=== PATIENT | female | born 1945 | race Caucasian/White ===

== ENCOUNTER 2018-02-16 21:34 | Inpatient (IN) | payer MEDICARE, BC ==
[2018-02-16] MEDS ORDERED: NORMAL SALINE 1000 ML 1,000 ML IV ONE (21:58)
[2018-02-16] MEDS ORDERED: ONDANSETRON HCL INJ/PF 4 MG/2 ML SDV IV ONE (21:58)
[2018-02-16 22:43] LABS: ABSOLUTE MONOCYTES (AUTO) 1.2 10^3/uL (0.1-1.4); ABSOLUTE NEUT (AUTO) 14.9 10^3/uL (1.7-8.2); BASOPHILS % (AUTO) 0.3 % (0-2); HEMATOCRIT 39.5 % (36.0-47.0); MEAN CORPUSCULAR HEMOGLOBIN 29.4 pg (27.0-33.4); MEAN CORPUSCULAR HGB CONC 32.9 g/dL (32.0-36.0); MEAN CORPUSCULAR VOLUME 89 fl (80-97); MONOCYTES % (AUTO) 6.7 % (3-13); PLATELET COUNT 246 10^3/uL (150-450); RED BLOOD COUNT 4.44 10^6/uL (3.72-5.28); RED CELL DISTRIBUTION WIDTH 13.1 % (11.5-14.0); TOTAL CELLS COUNTED % (AUTO) 100 %; WHITE BLOOD COUNT 17.2 10^3/uL (4.0-10.5)
--- NOTE | 2018-02-16 22:48 | ER Document Report ---
ED Syncope and Near Syncope - General Chief Complaint: Passed Out Prior to Arrival Stated Complaint: POSSIBLE SYNCOPAL EPISODE Time Seen by Provider: 02/16/18 21:48 Mode of Arrival: Medic Information source: Patient, Relative - Notes: Patient is a 72-year-old female who presents with complaints of diarrhea and syncopal episode. Patient has not been seen at this facility before. Patient' s reports that they were visiting [place] for dinner when the patient felt like she had to have a bowel movement. Patient had a large amount of diarrhea in the bathroom and then had a syncopal episode. On EMS arrival patient was hypotensive with a initial blood pressure of 73/58. Patient is alert and oriented now and reports that her only complaint is diarrhea and lower abdominal cramping. Patient's reports that she had a history of a similar incident 8 months ago in which she had a syncopal episode with diarrhea and was subsequently admitted to [facility] and diagnosed with colitis. Patient's past medical history includes hyperlipidemia , hypertension, diverticulosis and recurrent UTIs. Past surgical history positive for total hysterectomy. Patient's reports they have moved in the last couple of months, patient has been under a lot of stress and has not been eating nutritious meals. Patient has not had any fevers, chest pain or any other symptoms prior to this she was feeling fine before tonight. - Related Data Allergies/Adverse Reactions: Sulfa (Sulfonamide Antibiotics) Allergy (Verified 02/17/18 05:02) Past Medical History - General Information source: Patient, Relative - Social History Smoking Status: Never Smoker Cigarette use (# per day): No Chew tobacco use (# tins/day): No Smoking Education Provided: No Frequency of alcohol use: None Drug Abuse: None Family History: Reviewed & Not Pertinent - Past Medical History Cardiac Medical History: Reports: Hx Hypercholesterolemia, Hx Hypertension Renal/ Medical History: Reports: Other - Recurrent urinary tract infections GI Medical History: Reports: Hx Irritable Bowel, Other - Colitis Past Surgical History: Reports: Hx Hysterectomy Review of Systems - Review of Systems Constitutional: See HPI EENT: No symptoms reported Cardiovascular: No symptoms reported Respiratory: No symptoms reported Gastrointestinal: See HPI Genitourinary: No symptoms reported Female Genitourinary: No symptoms reported Musculoskeletal: No symptoms reported Skin: No symptoms reported Hematologic/Lymphatic: No symptoms reported Neurological/Psychological: No symptoms reported Physical Exam - Vital signs Vitals: Resp 14 02/16/18 21:58 - Notes Notes: PHYSICAL EXAMINATION: GENERAL: Well-appearing, well-nourished and in no acute distress. HEAD: Atraumatic, normocephalic. EYES: Pupils equal round and reactive to light, extraocular movements intact, conjunctiva are normal. ENT: Nares patent, oropharynx clear without exudates. Moist mucous membranes. NECK: Normal range of motion, supple without lymphadenopathy LUNGS: Breath sounds clear to auscultation bilaterally and equal. No wheezes rales or rhonchi. HEART: Regular rate and rhythm without murmurs ABDOMEN: Soft, nontender, nondistended abdomen. No guarding, no rebound. No masses appreciated. Female : deferred Musculoskeletal: Normal range of motion, no pitting or edema. No cyanosis. NEUROLOGICAL: Cranial nerves grossly intact. Normal speech, normal gait. Normal sensory, motor exams PSYCH: Normal mood, normal affect. SKIN: Warm, Dry, normal turgor, no rashes or lesions noted. Course - Re-evaluation Re-evalutation: Weak appearing 72-year-old female arrives via EMS with complaints of hypotension , syncope and diarrhea. Patient reports sudden onset of diarrhea while she was out to dinner and had syncopal episode while on the toilet. Patient and state that she was feeling fine all day. Patient's only complaint currently is low abdominal cramping and diarrhea. Given the patient's history of colitis 8 months ago with subsequent admission, will work patient up for possible infectious colitis. She will receive IV fluids for hypotension. Patient has remained normotensive since then department. EMS initially reported systolic blood pressure in the 70s however that was not documented in our department as patient had RDC received 1 L normal saline before arrival. CBC reveals a white count of 17. CT abdomen pelvis with IV contrast shows diffuse colitis to left colon, chronic diverticulosis and hiatal hernia. Stool was sent to laboratory for C. difficile testing and is negative. Urinalysis shows no signs of infection. EKG is sinus rhythm with no ST elevation or depressions. IV fluid resuscitation continued for a total of 3 L. Patient started on IV Cipro and Flagyl for probable infectious colitis. Patient has remained normotensive and all other vitals have been stable during her emergency department stay. Spoke with hospitalist, Dr. Suresh who agrees to admit patient to telemetry floor. - Vital Signs Vital signs: Temp Pulse Resp BP Pulse Ox 98.6 F 73 18 150/60 H 99 02/17/18 06:14 02/17/18 06:14 02/17/18 06:14 02/17/18 06:14 02/17/18 06:14 - Laboratory Result Diagrams: 02/17/18 03:14 02/17/18 03:14 Laboratory results interpreted by me: 02/16/18 02/16/18 02/17/18 22:25 22:25 03:14 WBC 17.2 H 13.6 H Seg Neutrophils % 87.0 H 91.0 H Lymphocytes % 6.0 L 5.2 L Absolute Neutrophils 14.9 H 12.4 H Sodium Chloride 110 H Carbon Dioxide BUN 26 H Est GFR ( Amer) 52 L Est GFR (Non-Af Amer) 43 L Glucose 169 H Direct Bilirubin 0.5 H Total Protein 6.2 L Albumin 02/17/18 03:14 WBC Seg Neutrophils % Lymphocytes % Absolute Neutrophils Sodium 146.3 H Chloride 114 H Carbon Dioxide 19 L BUN 28 H Est GFR ( Amer) Est GFR (Non-Af Amer) 55 L Glucose 147 H Direct Bilirubin Total Protein 5.5 L Albumin 3.1 L Discharge - Discharge Clinical Impression: Colitis Hypotension Qualifiers: Hypotension type: unspecified hypotension type Qualified Code(s): I95.9 - Hypotension, unspecified Diarrhea Qualifiers: Diarrhea type: unspecified type Qualified Code(s): R19.7 - Diarrhea, unspecified Condition: Stable Disposition: ADMITTED INPATIENT Admitting Provider: Hospitalist Unit Admitted: Telemetry
[2018-02-16 23:01] LABS: ALANINE AMINOTRANSFERASE 22 U/L (9-52); ALBUMIN 3.6 g/dL (3.5-5.0); ALKALINE PHOSPHATASE 90 U/L (38-126); ANION GAP 12 (5-19); ASPARTATE AMINO TRANSFERASE 19 U/L (14-36); BILIRUBIN,DIRECT 0.5 mg/dL (0.0-0.4); BILIRUBIN,TOTAL 0.7 mg/dL (0.2-1.3); BLOOD UREA NITROGEN 26 mg/dL (7-20); CALCIUM 9.5 mg/dL (8.4-10.2); CARBON DIOXIDE 22 mmol/L (22-30); CHLORIDE 110 mmol/L (98-107); GLUCOSE 169 mg/dL (75-110); LIPASE 55.5 U/L (23-300); POTASSIUM 3.6 mmol/L (3.6-5.0); SODIUM 144.1 mmol/L (137-145); TOTAL PROTEIN 6.2 g/dL (6.3-8.2)
[2018-02-17] MEDS ORDERED: ONDANSETRON HCL INJ/PF 4 MG/2 ML SDV IV ONE (00:49)
[2018-02-17] MEDS ORDERED: NORMAL SALINE 1000 ML 1,000 ML IV ONE (01:27)
[2018-02-17] MEDS ORDERED: CIPROFLOXACIN 400 MG/D5W RTU 400 MG/200 ML RTUPB IV ONE (02:44)
[2018-02-17] MEDS ORDERED: METRONIDAZOLE 500 MG/NS RTU 100 ML IV ONE (02:46)
[2018-02-17] MEDS ORDERED: ONDANSETRON HCL INJ/PF 4 MG/2 ML SDV IV PRN (03:11)
[2018-02-17] MEDS ORDERED: IPRATROPIUM/ALBUTEROL 0.5-2.5 MG/3 ML AMPUL NEB PRN (03:11)
[2018-02-17 03:25] LABS: ABSOLUTE LYMPHOCYTES (AUTO) 0.7 10^3/uL (0.5-4.7); ABSOLUTE MONOCYTES (AUTO) 0.5 10^3/uL (0.1-1.4); ABSOLUTE NEUT (AUTO) 12.4 10^3/uL (1.7-8.2); BASOPHILS % (AUTO) 0.2 % (0-2); HEMATOCRIT 36.9 % (36.0-47.0); HEMOGLOBIN 12.3 g/dL (12.0-15.5); LYMPHOCYTES % (AUTO) 5.2 % (13-45); MEAN CORPUSCULAR HEMOGLOBIN 29.6 pg (27.0-33.4); MEAN CORPUSCULAR HGB CONC 33.3 g/dL (32.0-36.0); MEAN CORPUSCULAR VOLUME 89 fl (80-97); MONOCYTES % (AUTO) 3.6 % (3-13); PLATELET COUNT 223 10^3/uL (150-450); RED BLOOD COUNT 4.17 10^6/uL (3.72-5.28); RED CELL DISTRIBUTION WIDTH 13.1 % (11.5-14.0); TOTAL CELLS COUNTED % (AUTO) 100 %; WHITE BLOOD COUNT 13.6 10^3/uL (4.0-10.5)
--- NOTE | 2018-02-17 03:48 | RADIOLOGY REPORT (SQ) ---
EXAM DESCRIPTION: CT ABDOMEN PELVIS WITH IV CONTRAST CLINICAL HISTORY: 72 years Female, diarrhea, low abd pain, syncope Comparison: None. Technique: IV contrast. Coronal and sagittal reformat. This exam was performed according to our departmental dose-optimization program, which includes automated exposure control, adjustment of the mA and/or kV according to patient size and/or use of iterative reconstruction technique.[facility]: Dose Right [facility]: CareDose [facility]: Dose Right [facility]: Teradose 4D [facility]: [employer] LIMITATIONS: None. Findings: Moderate diffuse bowel wall thickening of the left colon and proximal sigmoid. Moderate hiatal hernia, colonic diverticulosis, moderate retained fluid in the colon consistent with nonspecific malabsorption. Small L4-5 vacuum disc desiccation. Inferior thorax, liver, gallbladder, pancreas, spleen, adrenals, renal system, pelvic organs, lymphatics, vasculature, and musculoskeleton appear otherwise unremarkable. IMPRESSION: 1. Moderate diffuse colitis pattern of the left colon. Differential diagnosis includes infectious, inflammatory, and neoplastic processes. 2. Moderate hiatal hernia. Colonic diverticulosis.
[2018-02-17 03:55] LABS: ALANINE AMINOTRANSFERASE 27 U/L (9-52); ALBUMIN 3.1 g/dL (3.5-5.0); ALKALINE PHOSPHATASE 84 U/L (38-126); ANION GAP 13 (5-19); ASPARTATE AMINO TRANSFERASE 20 U/L (14-36); BILIRUBIN,DIRECT 0.4 mg/dL (0.0-0.4); BILIRUBIN,TOTAL 0.4 mg/dL (0.2-1.3); BLOOD UREA NITROGEN 28 mg/dL (7-20); CALCIUM 9.2 mg/dL (8.4-10.2); CARBON DIOXIDE 19 mmol/L (22-30); CHLORIDE 114 mmol/L (98-107); GLUCOSE 147 mg/dL (75-110); POTASSIUM 4.4 mmol/L (3.6-5.0); SODIUM 146.3 mmol/L (137-145); TOTAL PROTEIN 5.5 g/dL (6.3-8.2)
[2018-02-17] MEDS: NORMAL SALINE 1000 ML 1,000 ML IV PRN ×3 (04:52→21:38)
--- NOTE | 2018-02-17 06:23 | PDOC H&P ---
History of Present Illness Admission Date/PCP: 02/17/18 03:16 Patient complains of: Abdominal pain and pre-syncope History of Present Illness: ANGELINA FLORES is a 72 year old female with a history of hypertension, depression , dyslipidemia, obesity, constipation predominant irritable bowel syndrome. Patient presents with 6 hours of abdominal pain, following a meal and urged to defecate was largely successful but was accompanied by a syncopal episode. EMS found blood pressure of 73/58 and received IV fluids. In the emergency room she is awake and alert at baseline. CT reveals colitis. Patient states previous episode approximately 10 months ago. She is placed on ciprofloxacin and Flagyl and referred the hospitalist for admission. Patient denies recent change in medications Past Medical History Cardiac Medical History: Reports: Hyperlipidema, Hypertension Pulmonary Medical History: Reports: Chronic Obstructive Pulmonary Disease (COPD) EENT Medical History: Reports: None Neurological Medical History: Reports: None Endocrine Medical History: Reports: None Renal/ Medical History: Reports: Other - Recurrent urinary tract infections Malignancy Medical History: Reports: None GI Medical History: Reports: Other - Colitis, constipation predominant irritable bowel syndrome Musculoskeltal Medical History: Reports: None Skin Medical History: Reports: None Psychiatric Medical History: Reports: Depression Traumatic Medical History: Reports: None Hematology: Reports: None Infectious Medical History: Reports: None Past Surgical History Past Surgical History: Reports: Hysterectomy Social History Information Source: Patient Lives with: Spouse/Significant other Smoking Status: Never Smoker Frequency of Alcohol Use: None Drugs: None - Advance Directive Resuscitation Status: Full Code Family History Family History: Hypertension Parental Family History Reviewed: Yes Children Family History Reviewed: Yes Sibling(s) Family History Reviewed.: Yes Medication/Allergy Allergies/Adverse Reactions: Sulfa (Sulfonamide Antibiotics) Allergy (Verified 02/17/18 05:02) Review of Systems Constitutional: PRESENT: as per HPI, other - Constipation. ABSENT: chills, fever(s), headache(s), weight gain, weight loss Eyes: ABSENT: visual disturbances Ears: ABSENT: hearing changes Cardiovascular: ABSENT: chest pain, dyspnea on exertion, edema, orthropnea, palpitations Respiratory: ABSENT: cough, hemoptysis Gastrointestinal: PRESENT: as per HPI, constipation, nausea. ABSENT: abdominal pain, diarrhea, hematemesis, hematochezia, vomiting Genitourinary: ABSENT: dysuria, hematuria Musculoskeletal: ABSENT: joint swelling Integumentary: ABSENT: rash, wounds Neurological: ABSENT: abnormal gait, abnormal speech, confusion, dizziness, focal weakness, syncope Psychiatric: ABSENT: anxiety, depression, homidical ideation, suicidal ideation Endocrine: ABSENT: cold intolerance, heat intolerance, polydipsia, polyuria Hematologic/Lymphatic: ABSENT: easy bleeding, easy bruising Physical Exam Vital Signs: Temp Pulse Resp BP Pulse Ox 98.6 F 20 145/64 H 96 02/17/18 04:54 02/17/18 04:01 02/17/18 04:00 02/17/18 04:01 General appearance: PRESENT: no acute distress, well-developed, well-nourished Head exam: PRESENT: atraumatic, normocephalic Eye exam: PRESENT: conjunctiva pink, EOMI, PERRLA. ABSENT: scleral icterus Ear exam: PRESENT: normal external ear exam Mouth exam: PRESENT: moist, tongue midline Neck exam: ABSENT: carotid bruit, JVD, lymphadenopathy, thyromegaly Respiratory exam: PRESENT: clear to auscultation merle. ABSENT: rales, rhonchi, wheezes Cardiovascular exam: PRESENT: RRR. ABSENT: diastolic murmur, rubs, systolic murmur Pulses: PRESENT: normal dorsalis pedis pul Vascular exam: PRESENT: normal capillary refill GI/Abdominal exam: PRESENT: normal bowel sounds, soft. ABSENT: distended, guarding, mass, organolmegaly, rebound, tenderness Rectal exam: PRESENT: deferred Extremities exam: PRESENT: full ROM. ABSENT: calf tenderness, clubbing, pedal edema Neurological exam: PRESENT: alert, awake, oriented to person, oriented to place , oriented to time, oriented to situation, CN II-XII grossly intact. ABSENT: motor sensory deficit Psychiatric exam: PRESENT: appropriate affect, normal mood. ABSENT: homicidal ideation, suicidal ideation Skin exam: PRESENT: dry, intact, warm. ABSENT: cyanosis, rash Results Impressions: Abdomen/Pelvis CT 02/16/18 22:58 IMPRESSION: 1. Moderate diffuse colitis pattern of the left colon. Differential diagnosis includes infectious, inflammatory, and neoplastic processes. 2. Moderate hiatal hernia. Colonic diverticulosis. Assessment & Plan - Diagnosis (1) Vasovagal syncope Is this a current diagnosis for this admission?: Yes Plan: Following exceptional bowel movement with colitis. Reassurance (2) Colitis Is this a current diagnosis for this admission?: Yes Plan: Flagyl and ciprofloxacin, IV fluid challenge, trial clear liquids (3) Hypotension Qualifiers: Hypotension type: unspecified hypotension type Qualified Code(s): I95.9 - Hypotension, unspecified Is this a current diagnosis for this admission?: Yes Plan: Secondary to #1, IV fluid challenge, correction of colitis. - Time Time Spent: 30 to 50 Minutes
[2018-02-17] MEDS: HEPARIN SOD (PORCINE) 5,000 UNIT/ML 1 ML SYRINGE SUBCUT SCH ×3 (06:36→21:38)
[2018-02-17 07:06] LABS: APPEARANCE,URINE CLEAR; BILIRUBIN,URINE NEGATIVE (NEGATIVE); COLOR,URINE YELLOW; GLUCOSE, URINE NEGATIVE (NEGATIVE); KETONES,URINE NEGATIVE (NEGATIVE); LEUKOCYTE ESTERASE,URINE TRACE (NEGATIVE); NITRITE,URINE NEGATIVE (NEGATIVE); PROTEIN,URINE NEGATIVE (NEGATIVE)
--- NOTE | 2018-02-17 07:48 | EKG REPORT ---
SEVERITY:- ABNORMAL ECG - SINUS RHYTHM LEFT VENTRICULAR HYPERTROPHY LATERAL INFARCT, OLD : Confirmed by: Chris Moore MD 17-Feb-2018 07:47:33
[2018-02-17] MEDS ORDERED: METRONIDAZOLE 500 MG TABLET PO SCH (09:00)
[2018-02-17] MEDS: METRONIDAZOLE 500 MG TABLET PO SCH ×3 (12:28→23:15)
--- NOTE | 2018-02-17 13:36 | Progress Note ---
Provider Note Provider Note: Patient admitted this am. She feels better today. Still on clear liquid diet but tolerating it well. Labs improved but she is still acidotic and mildly hypernatremic. Will continue current treatment, advance diet as tolerated and reevaluate in am
[2018-02-17] MEDS: ACETAMINOPHEN 325 MG TABLET PO PRN (17:33)
[2018-02-17] MEDS: CIPROFLOXACIN 400 MG/D5W RTU 400 MG/200 ML RTUPB IV SCH (17:34)
[2018-02-18] MEDS: METRONIDAZOLE 500 MG TABLET PO SCH ×2 (05:18→12:23)
[2018-02-18] MEDS: HEPARIN SOD (PORCINE) 5,000 UNIT/ML 1 ML SYRINGE SUBCUT SCH ×2 (05:18→13:16)
[2018-02-18] MEDS: CIPROFLOXACIN 400 MG/D5W RTU 400 MG/200 ML RTUPB IV SCH (05:19)
[2018-02-18] MEDS: ACETAMINOPHEN 325 MG TABLET PO PRN (05:23)
[2018-02-18 06:09] LABS: ABSOLUTE EOSINOPHILS # (AUTO) 0.1 10^3/uL (0.0-0.6); ABSOLUTE LYMPHOCYTES (AUTO) 1.9 10^3/uL (0.5-4.7); ABSOLUTE MONOCYTES (AUTO) 0.6 10^3/uL (0.1-1.4); ABSOLUTE NEUT (AUTO) 3.7 10^3/uL (1.7-8.2); BASOPHILS % (AUTO) 0.7 % (0-2); EOSINOPHILS % (AUTO) 1.4 % (0-6); HEMATOCRIT 35.7 % (36.0-47.0); HEMOGLOBIN 11.8 g/dL (12.0-15.5); MEAN CORPUSCULAR HEMOGLOBIN 29.5 pg (27.0-33.4); MEAN CORPUSCULAR HGB CONC 33.1 g/dL (32.0-36.0); MEAN CORPUSCULAR VOLUME 89 fl (80-97); PLATELET COUNT 197 10^3/uL (150-450); RED BLOOD COUNT 4.01 10^6/uL (3.72-5.28); RED CELL DISTRIBUTION WIDTH 13.2 % (11.5-14.0); SEGMENTED NEUTROPHILS % (AUTO) 57.9 % (42-78); TOTAL CELLS COUNTED % (AUTO) 100 %; WHITE BLOOD COUNT 6.4 10^3/uL (4.0-10.5)
[2018-02-18 06:33] LABS: ALANINE AMINOTRANSFERASE 28 U/L (9-52); ALKALINE PHOSPHATASE 72 U/L (38-126); ANION GAP 9 (5-19); ASPARTATE AMINO TRANSFERASE 17 U/L (14-36); BILIRUBIN,DIRECT 0.3 mg/dL (0.0-0.4); BILIRUBIN,TOTAL 0.4 mg/dL (0.2-1.3); BLOOD UREA NITROGEN 12 mg/dL (7-20); CALCIUM 9.4 mg/dL (8.4-10.2); CARBON DIOXIDE 25 mmol/L (22-30); CHLORIDE 114 mmol/L (98-107); GLUCOSE 107 mg/dL (75-110); POTASSIUM 4.2 mmol/L (3.6-5.0); SODIUM 148.4 mmol/L (137-145); TOTAL PROTEIN 5.3 g/dL (6.3-8.2)
--- NOTE | 2018-02-18 12:16 | PDOC DISCHARGE SUMMARY ---
General - Admit/Disc Date/PCP Admission Date/Primary Care Provider: 02/17/18 03:16 Discharge Date: 02/18/18 - Discharge Diagnosis (1) Colitis Is this a current diagnosis for this admission?: Yes (2) Diarrhea Is this a current diagnosis for this admission?: Yes (3) Hypotension Is this a current diagnosis for this admission?: Yes (4) Vasovagal syncope Is this a current diagnosis for this admission?: Yes (5) Acute hypernatremia Is this a current diagnosis for this admission?: Yes Summary: Likely iatrogenic - Additional Information Resuscitation Status: Full Code Discharge Diet: As Tolerated Discharge Activity: Activity As Tolerated Prescriptions: Ciprofloxacin HCl [Cipro 500 mg Tablet] 500 mg PO BID #10 tablet Metronidazole [Flagyl 500 mg Tablet] 500 mg PO Q6 #20 tablet Home Medications: Atorvastatin Calcium [Lipitor 10 mg Tablet] 10 mg PO QHS 02/17/18 Duloxetine HCl [Cymbalta] 60 mg PO DAILY 02/17/18 Lisinopril [Prinivil 10 mg Tablet] 10 mg PO DAILY 02/17/18 Montelukast Sodium [Singulair 10 mg Tablet] 10 mg PO DAILY 02/17/18 Omeprazole 20 mg PO DAILY 02/17/18 Verapamil HCl [Verapamil Sr] 180 mg PO DAILY 02/17/18 Ciprofloxacin HCl [Cipro 500 mg Tablet] 500 mg PO BID #10 tablet 02/18/18 Metronidazole [Flagyl 500 mg Tablet] 500 mg PO Q6 #20 tablet 02/18/18 History of Present Illness History of Present Illness: ANGELINA FLORES is a 72 year old female with a history of hypertension, depression, dyslipidemia, obesity, constipation predominant irritable bowel syndrome. Patient presents with 6 hours of abdominal pain, following a meal and urged to defecate was largely successful but was accompanied by a syncopal episode. EMS found blood pressure of 73/58 and received IV fluids. In the emergency room she is awake and alert at baseline. CT reveals colitis. Patient states previous episode approximately 10 months ago. She is placed on ciprofloxacin and Flagyl and referred the hospitalist for admission. Patient denies recent change in medications Hospital Course Hospital Course: This patient was admitted with abdominal pain and vasovagal syncope. She had a CT of the abdomen done which revealed colitis. Patient was started on intravenous Flagyl and ciprofloxacin and rapidly improved. She has had a recent colonoscopy done within the last year which apparently showed no significant abnormalities. Syncopal episode is thought to be secondary to straining because having a bowel movement and no further interventions were performed. Patient has progressively improved and has been able to tolerate her diet with resolution of abdominal pain and so she has been discharged home for outpatient follow-up. Physical Exam Vital Signs: Temp Pulse Resp BP Pulse Ox 98.7 F 64 16 164/60 H 100 02/18/18 11:25 02/18/18 11:25 02/18/18 11:25 02/18/18 11:25 02/18/18 11:25 Intake & Output 02/17/18 02/18/18 02/19/18 06:59 06:59 06:59 Intake Total 1350 Output Total 100 900 Balance -100 450 Weight 98.4 kg 101.1 kg General appearance: PRESENT: no acute distress, obese, well-developed, well- nourished Head exam: PRESENT: atraumatic, normocephalic Eye exam: PRESENT: conjunctiva pink, PERRLA. ABSENT: scleral icterus Mouth exam: PRESENT: moist, tongue midline Neck exam: ABSENT: carotid bruit, JVD, lymphadenopathy, thyromegaly Respiratory exam: PRESENT: clear to auscultation merle. ABSENT: rales, rhonchi, wheezes Cardiovascular exam: PRESENT: RRR. ABSENT: diastolic murmur, rubs, systolic murmur GI/Abdominal exam: PRESENT: normal bowel sounds, soft. ABSENT: distended, guarding, mass, organolmegaly, rebound, tenderness Rectal exam: PRESENT: deferred Extremities exam: PRESENT: full ROM. ABSENT: calf tenderness, clubbing, pedal edema Neurological exam: PRESENT: alert, awake, oriented to person, oriented to place , oriented to time, oriented to situation, CN II-XII grossly intact. ABSENT: motor sensory deficit Psychiatric exam: PRESENT: appropriate affect, normal mood. ABSENT: homicidal ideation, suicidal ideation Skin exam: PRESENT: dry, intact, warm. ABSENT: cyanosis, rash Results Laboratory Results: 02/18/18 05:31 02/18/18 05:31 18 02/18/18 05:31 05:31 WBC 6.4 RBC 4.01 Hgb 11.8 L Hct 35.7 L MCV 89 MCH 29.5 MCHC 33.1 RDW 13.2 Plt Count 197 Seg Neutrophils % 57.9 Lymphocytes % 30.0 Monocytes % 10.0 Eosinophils % 1.4 Basophils % 0.7 Absolute Neutrophils 3.7 Absolute Lymphocytes 1.9 Absolute Monocytes 0.6 Absolute Eosinophils 0.1 Absolute Basophils 0.0 Sodium 148.4 H Potassium 4.2 Chloride 114 H Carbon Dioxide 25 Anion Gap 9 BUN 12 Creatinine 0.73 Est GFR ( Amer) > 60 Est GFR (Non-Af Amer) > 60 Glucose 107 Calcium 9.4 Magnesium 2.0 Total Bilirubin 0.4 AST 17 ALT 28 Alkaline Phosphatase 72 Total Protein 5.3 L Albumin 3.0 L Impressions: Abdomen/Pelvis CT 02/16/18 22:58 IMPRESSION: 1. Moderate diffuse colitis pattern of the left colon. Differential diagnosis includes infectious, inflammatory, and neoplastic processes. 2. Moderate hiatal hernia. Colonic diverticulosis. Qualifiers - * PATIENT BEING DISCHARGED WITH ANY OF THE FOLLOWING DIAGNOSIS: No Plan Time Spent: Less than 30 Minutes
[2018-02-18 12:38] VITALS: BP 141/54
== END 2018-02-18 13:43 | disposition home or self-care (01) | DRG 392 ==
LOC: ER 21:34 → EH 02-17 03:16 → 3N 02-17 05:59
PROVIDERS: ADMIT Internal Medicine; ATTEND Internal Medicine
DX: K52.9 Noninfective gastroenteritis and colitis, unspecified (principal); E87.0 Hyperosmolality and hypernatremia; I95.9 Hypotension, unspecified; E78.5 Hyperlipidemia, unspecified; I10 Essential (primary) hypertension; J44.9 Chronic obstructive pulmonary disease, unspecified; K44.9 Diaphragmatic hernia without obstruction or gangrene
CPT/HCPCS: 36415; 74177; 80053; 81001; 83605; 83690; 83735; 85025; 87040; 87045; 87205; 87493; 93005; 93010; 96361; 96374; 96376; 99285; J0744; J1644; J2405; J7030